=== PATIENT | male | born 1970 | race Hispanic/Latino ===

== ENCOUNTER 2019-07-20 15:16 | Observation (INO) | payer OTHER ==
[~2019-07-20] VITALS: Ht 170.2 cm; Wt 79.8 kg
--- NOTE | 2019-07-20 15:54 | Diagnostic Imaging Report ---
EXAMINATION: CXR 1 VEW - HOP INDICATION: Chest pain COMPARISON: None FINDINGS: LINES/TUBES:None LUNGS:The lungs are well-inflated. No focal consolidation or pulmonary edema. PLEURA:No pleural effusion or pneumothorax. MEDIASTINUM:The cardiomediastinal silhouette appears normal in size and shape. BONES/SOFT TISSUES:No acute osseous injury. ABDOMEN:No free air under the diaphragm. IMPRESSION: No focal pneumonia or pulmonary edema. Signed by: Aline Teran MD on 07/20/2019 3:51 PM
--- NOTE | 2019-07-20 16:30 | NUR ---
PT TO BE ADMITTED FOR OBSERVATION, PT AND FAMILY AWARE OF POC, VITAL SIGNS STABLE, PT VOICES NO COMPLAINTS AT THIS TIME
[2019-07-20] MEDS ORDERED: FAMOTIDINE 20 MG/2 ML VIAL IV ONE ×2 (16:33→17:05)
[2019-07-20] MEDS ORDERED: ASPIRIN 81 MG CHEW TAB PO ONE (16:45)
[2019-07-20] MEDS ORDERED: ASPIRIN 325 MG TAB PO ONE (16:45)
--- NOTE | 2019-07-20 16:52 | NUR ---
[facility] CALLED FOR TRANSPORT 40MIN ETA
[2019-07-20] MEDS ORDERED: ASPIRIN 325 MG TAB ONE (17:05)
[2019-07-20 18:24] VITALS: BP 146/95
[2019-07-20 18:30] VITALS: BP 146/95
--- OUTSIDE RECORDS SUMMARY | 2019-07-20 18:30 | XMS REPORT ---
Author Author [facility] Address Unknown Phone Unavailable Care Team Providers Care Manager Corporate Name Role Phone IGNACIA ROBERTO Unavailable Unavailable Problems This patient has no known problems. Allergies, Adverse Reactions, Alerts This patient has no known allergies or adverse reactions. Medications This patient has no known medications. Results Test Description Test Time Test Comments Text Results Atomic Results Result Comments CXR 1 [facility] 2019-07-20 15:50:00 [place] [address] Patient Name: KONSTANTIN FUENTES MR #: [id number] : 1970 Age/Sex: 48/M Req #: [id number] [facility] Physician: Ordered by: IGNACIA ROBERTO MD Report #: [id number] Location: [facility] Room/Bed: Procedure: [id number] HOPD/CXR 1 [facility] Exam Date: 07/20/19 Exam Time: 1550 REPORT STATUS: Signed EXAMINATION: CXR 1 - [facility] INDICATION: Chest pain COMPARISON: None FINDINGS: LINES/TUBES:None LUNGS:The lungs are well-inflated. No focal consolidation or pulmonary edema. PLEURA:No pleural effusion or pneumothorax. MEDIASTINUM:The cardiomediastinal silhouette appears normal in size and shape. BONES/SOFT TISSUES:No acute osseous injury. ABDOMEN:No free air under the diaphragm. IMPRESSION: No focal pneumonia or pulmonary edema. Signed by: Dacia Garcia MD on 07/20/2019 3:51 PM Dictated By: DACIA GARCIA MD 50 Transcribed By: NOE on 07/20/191550 COPY TO: IGNACIA ROBERTO MD
[2019-07-20 18:39] VITALS: BP 146/95
[2019-07-20 18:40] VITALS: BP 146/95
--- NOTE | 2019-07-20 18:48 | NUR ---
Consult called in for MD Stein for chest pain. Spoke with Dr. Benitez regarding pt condition and room number.
--- NOTE | 2019-07-20 19:02 | NUR ---
Walking rounds done and report received. Patient in NAD. Tele#[phone] POC discussed. at the bedside. Bed in lowest position, locked and call leggett within reach.
[2019-07-20] MEDS ORDERED: PANTOPRAZOLE SOD 40 MG TABEC PO ONE (19:15)
[2019-07-20 20:00] VITALS: BP 126/85
[2019-07-20 20:33] LABS: AMYLASE 116 U/L (25-125); CHOL/HDL RATIO 5.6 (3.9-4.7); CHOLESTEROL 213 MD/DL (0-199); CREATINE KINASE 75 IU/L (30-200); HDL CHOLESTEROL 38 MG/DL (40-60); LDL CHOLESTEROL 120 MG/DL (60-130); TRIGLYCERIDES 275 MG/DL (0-149)
[2019-07-20 20:49] LABS: THYROID STIMULATING HORMONE 13.997 uIU/mL (0.350-4.940)
[2019-07-21] VITALS: BP 118/79
--- NOTE | 2019-07-21 02:19 | History and Physical ---
CHIEF COMPLAINT: A 48-year-old male, who comes in with chest pain. HISTORY OF PRESENT ILLNESS: Mr. Nicholas Perez with a history of hypothyroidism and history of hyperlipidemia, was in his usual state of health until about a week's time. The patient started to have epigastric pain, which radiated to both sides and also substernally up into the throat area. The patient continued to have this pain and was increasing in intensity. The patient came to the emergency room and was admitted to the hospital for chest pain, rule out acute coronary syndrome. PAST MEDICAL HISTORY: Hypothyroidism, history of hyperlipidemia. MEDICINES: He takes fenofibrate, dose unknown; Synthroid 150 mcg daily. PAST SURGICAL HISTORY: History of appendectomy. SOCIAL HISTORY: No smoking. No EtOH. No IV drug abuse. The patient did smoke and drink about 20 years ago. FAMILY HISTORY: Father with diabetes mellitus. Mother with diabetes mellitus. No history of coronary artery disease in the family. ALLERGIES: THE PATIENT HAS NO DRUG ALLERGIES. REVIEW OF SYSTEMS: Positive for chest pain. Negative for shortness of breath. No nausea. No vomiting. No diarrhea. No constipation. No rectal bleeding. No diplopia. No blurry vision. No headaches. No paresthesias. No hyperesthesias either. PHYSICAL EXAMINATION: VITAL SIGNS: Temperature is 98.4, pulse of 68, respirations of 18, blood pressure is 146/95, pulse oximetry of 99% on room air. IMAGING STUDIES: Chest x-ray shows no focal pneumonia or pulmonary edema and normal cardiac silhouette. The patient's troponins are negative. Blood work is essentially normal at this time, has not been completely reported at this time. ASSESSMENT: 1. Chest pain, rule out acute coronary syndrome. 2. Hypothyroidism. 3. Hyperlipidemia. 4. History suggestive of reflux esophagitis. PLAN: Continue all his home medications. Echocardiogram will be ordered, and a stress test can be done as an outpatient. Plan would be to rule out acute coronary syndrome. Discharge the patient back home and follow up with a stress test as an outpatient. Further recommendation per clinical course. The patient will be started also on Protonix. MD ARASELI Quick/MODNikia /[id number]
--- NOTE | 2019-07-21 02:30 | NUR ---
Patient resting in bed without any complaints voiced, and call leggett within reach.
[2019-07-21 04:00] VITALS: BP 114/76
[2019-07-21 05:45] LABS: CREATINE KINASE MB 1.4 ng/mL (0-5.0)
--- NOTE | 2019-07-21 06:45 | NUR ---
Dr. Main making rounds. Per MD patient may be discharged if cardiology clears.
[2019-07-21 07:28] VITALS: BP 118/78
[2019-07-21] MEDS ORDERED: PANTOPRAZOLE SOD 40 MG TABEC PO SCH (07:30)
[2019-07-21] MEDS ORDERED: ASPIRIN 325 MG TAB EC PO SCH (09:00)
[2019-07-21 09:20] VITALS: BP 118/78
[2019-07-21 11:21] VITALS: BP 123/80
[2019-07-21 13:55] LABS: CREATINE KINASE MB 1.2 ng/mL (0-5.0)
[2019-07-21 15:31] VITALS: BP 110/80
[2019-07-21] MEDS ORDERED: PANTOPRAZOLE SO40 MG PO (15:42)
--- NOTE | 2019-07-21 18:19 | EXERCISE STRESS TEST ---
DATE OF STUDY: 07/21/2019 14:07:00 Stress Test - Treadmill ONLY PROCEDURE TITLE: Exercise treadmill stress test. INDICATION: Chest pain. PROCEDURE IN DETAIL: The patient performed treadmill exercise using a Alejandro protocol, exercising for 10 minutes and 4 seconds to stage IV and completing estimated workload of 12.8 metabolic equivalents (METS). The heart rate was 78 beats per minute at rest and increased to 160 beats per minute at peak exercise, which is 92% of the maximum predicted heart rate. The resting blood pressure was 126/70 mmHg and increased to 155/99 mmHg, which is a normal response. The patient's test was terminated due to the patient's fatigue. The resting electrocardiogram demonstrated normal sinus rhythm. There were no ST-segment changes suggestive of myocardial ischemia. IMPRESSION: Normal clinical, hemodynamic, and ECG exercise treadmill stress test. Adriana Benitez MD ABS/MODL /[id number]
--- NOTE | 2019-07-21 22:18 | NUR ---
Cardiology Consult Dictation# [id number]
--- NOTE | 2019-07-22 04:46 | Consultation ---
DATE OF CONSULTATION: 07/21/2019 Cardiology Consultation REQUESTING PHYSICIAN: Dr. Main. REASON FOR CONSULTATION: Chest pain. HISTORY OF PRESENT ILLNESS: This is a 48-year-old man with history of hyperlipidemia and hypothyroidism, presents with complaints of chest pain. The patient reports he has been having chest pain for the last week, described as pressure, 8/10 in severity, associated with shortness of breath, lasting hours at a time. He notes the pain is better when he walks. He denies any associated nausea or diaphoresis. There was no radiation. In addition, he denies any edema or PND, but does endorse that he is short of breath when he lies flat, which has been ongoing for the last year. REVIEW OF SYSTEMS: Negative except as per HPI. PAST MEDICAL HISTORY: 1. Hyperlipidemia. 2. Hypothyroidism. 3. GERD. PAST SURGICAL HISTORY: Appendectomy. ALLERGIES: PLEASE SEE EMR. MEDICATIONS: Please see medication list. SOCIAL HISTORY: Denies tobacco, alcohol, or illicit drugs. FAMILY HISTORY: Denies family history of cardiac disease. PHYSICAL EXAMINATION: VITAL SIGNS: Temperature 97.9 degrees, pulse 59, respiratory rate 17, blood pressure 133/80, and oxygen saturation 99% on room air. GENERAL: Well-developed and well-nourished man. In no acute distress. HEENT: Normocephalic and atraumatic. Pupils are equal. No scleral icterus. NECK: Supple. No thyromegaly or cervical lymphadenopathy. No carotid bruits. LUNGS: Clear to auscultation bilaterally. No wheezes or crackles. CARDIOVASCULAR: Normal rate, regular rhythm. No murmur. Normal S1 and S2. ABDOMEN: Soft and nontender. EXTREMITIES: No edema. NEUROLOGIC: Nonfocal exam. LABORATORY DATA: Troponin is 0.005. Cholesterol 213, LDL 120, triglycerides 275, HDL 38, TSH 13.97. EKG, normal sinus rhythm, cannot rule out anterior infarct age undetermined. IMPRESSION: 1. Chest pain. 2. Hypothyroidism. 3. Hyperlipidemia. RECOMMENDATIONS: No evidence of myocardial infarction on serial cardiac biomarkers. Echocardiogram has been performed with normal LV systolic function. There was no evidence of severe valvular abnormalities. Given younger age, we will proceed with exercise treadmill stress test to evaluate for ischemia. If chest pain is unremarkable, he may be discharged home to follow up as an outpatient. If chest pain persists, we would recommend nuclear stress test at that point recommend initiation of statin therapy given his hyperlipidemia. Blood pressure is well controlled. Discussed risk factor modification. Thank you for this consult. We will continue to follow. Adriana Benitez MD ABS/MODL /[id number]
== END 2019-07-21 16:55 | disposition home or self-care (01) ==
LOC: FSED 15:16 → EDBD 15:16 → ERHOLD 16:36 → IMCU 18:22
PROVIDERS: ADMIT Family Medicine; ATTEND Family Medicine
DX: R07.9 Chest pain, unspecified (principal); R10.13 Epigastric pain; E03.9 Hypothyroidism, unspecified; E78.00 Pure hypercholesterolemia, unspecified; R07.2 Precordial pain; Z87.891 Personal history of nicotine dependence; Z83.3 Family history of diabetes mellitus; K21.0 Gastro-esophageal reflux disease with esophagitis
CPT/HCPCS: 36415 ×2; 71045; 80061; 82150; 82550 ×2; 82553 ×2; 84443; 84484 ×2; 93005; 93017; 93306; 99284; G0378 ×2; S0164 ×2

== ENCOUNTER 2023-04-11 18:54 | Emergency (ER) | payer BC ==
[~2023-04-11] VITALS: Ht 170.2 cm; Wt 79.8 kg
[~2023-04-11 18:54] MED LIST: MELATONIN3 MG PO; PANTOPRAZOLE SO40 MG PO; PROTONIX20 MG PO; SYNTHROID50 MCG PO
[2023-04-11] MEDS ORDERED: HYDROCODONE/APAP 5MG-325MG TAB PO ONE (19:30)
[2023-04-11] MEDS ORDERED: HYDROCODON-ACE1 EA11 PO (22:10)
[2023-04-11 22:33] VITALS: O2SAT 100
== END 2023-04-11 22:46 | disposition home or self-care (01) ==
LOC: ER 18:59
DX: R50.9 Fever, unspecified (principal); I82.612 Acute embolism and thrombosis of superficial veins of left upper extremity; T80.1XXA Vascular complications following infusion, transfusion and therapeutic injection, initial encounter
CPT/HCPCS: 93971; 99283